=== PATIENT | female | born 1990 | race Caucasian/White ===

== ENCOUNTER 2016-07-12 17:00 | Inpatient (IN) | payer MEDICAID ==
[~2016-07-12] VITALS: Ht 154.9 cm; Wt 90.3 kg
[2016-07-12] MEDS ORDERED: Methylergonovine 0.2 mg/mL Inj IM PRN ×2 (17:25→18:25)
[2016-07-12] MEDS ORDERED: Hemorrhage Kit, Post Partum XX ONE ×2 (17:25→18:25)
[2016-07-12] MEDS ORDERED: Lactated Ringer's 1,000 ML IV PRN (17:25)
[2016-07-12] MEDS ORDERED: Oxytocin 30 Units/500 mL LR 30 UNITS in IV Premix 1 EACH IV PRN ×2 (17:25→18:25)
[2016-07-12] MEDS ORDERED: Oxytocin 10 Unit/mL Inj IM PRN ×2 (17:25→18:25)
[2016-07-12] MEDS ORDERED: Carboprost 250 mCg/mL Inj IM PRN ×2 (17:25→18:25)
[2016-07-12] MEDS ORDERED: Sodium Chloride LOK Flush 10 mL Syringe IVFLUSH PRN (17:25)
[2016-07-12] MEDS ORDERED: Oxytocin 30 Units/500 mL LR Premix IV ONE (17:32)
[2016-07-12 17:36] LABS: Mean Corpuscular Hemoglobin 30.8 pg (27.0-35.0); Mean Corpuscular Volume 90.7 fL (81-100)
[2016-07-12] MEDS ORDERED: fentaNYL 2 mCg/mL-Bupivicaine 0.125% 100 mL Premix EPIDURAL ONE (17:47)
[2016-07-12] MEDS ORDERED: Lactated Ringer's 1,000 ML IV SCH (18:23)
[2016-07-12] MEDS ORDERED: Witch Hazel-Glycerin Pads TOPICAL PRN (18:25)
[2016-07-12] MEDS ORDERED: Benzocaine (Dermoplast) 20% 60 Gm Spray TOPICAL PRN (18:25)
[2016-07-12] MEDS ORDERED: LANOlin HPA 7 Gm Ointment TOPICAL PRN (18:25)
[2016-07-12] MEDS ORDERED: Dextrose 5% Lactated Ringer's 1,000 ML IV SCH (18:35)
--- NOTE | 2016-07-12 23:31 | HP ---
[address] [address] HISTORY AND PHYSICAL PATIENT: JAYDEN CURTIS : 1990 MR#: [id number] ADMIT: 07/12/2016 JOB ID: [id number] DATE: 07/12/2016 ADMISSION DIAGNOSIS: Precipitous labor. HISTORY OF PRESENT ILLNESS: The patient is 25-year-old, 3, para 1-1-0-2 at 39 weeks 2 days gestational age who presented to triage in active labor, progressed to fully dilated, +3 station within less than 1 hour from presentation. *Current complicated with: 1- Late to care, 2-cigarette and marijuana abuse. 3- Desires permanent sterilization PAST OBSTETRICAL HISTORY: In 2006, 36 weeks ended with spontaneous vaginal delivery. In 2014, spontaneous vaginal delivery at term and the current . PAST GYNECOLOGIC HISTORY: No history of abnormal Pap smears. Prior history of Chlamydia. It was negative this . PAST SURGICAL HISTORY: None, per patient. PAST MEDICAL HISTORY: Asthma( no medications), anemia, IBS and gastroesophageal reflux disease. ALLERGIES: No known drug allergies. MEDICATIONS: vitamins, omeprazole. SOCIAL HISTORY: Smokes marijuana daily. Cigarette smoking half a pack per day for the last 11 years. Denied alcohol consumption. UDS was positive for cannabinoids. LABS: AB positive, antibody negative, rubella immune, serology nonreactive, hepatitis B surface antigen negative. HIV nonreactive. Varicella immune. GBS cultures negative. PRECIPITOUS LABOR REPORT: The patient progressed to fully dilated, +3 station. 's head delivered in left occiput anterior position. Tight nuchal cord was noted, was clamped and cut at the level of the baby's neck. This released anterior shoulder and posterior shoulder, the rest of the body followed. Baby was placed over mom's chest. Placenta followed spontaneously. Upon inspection, it was noted to be intact with three-vessel cord centrally inserted. Firm uterine fundus at the end of the delivery of the placenta. Estimated blood loss was 200 cc. Intact perineum upon inspection. FINDINGS: Single viable male with Apgars 8/9, weight is still pending. ASSESSMENT AND PLAN: The patient is a 25-year-old, 3, para 2-1-0-3, day zero status post precipitous labor and delivery. Desires tubal ligation. 1- keep patient n.p.o. and start IV hydration after midnight. 2- care. 3- Continue current medications. MTDD
--- NOTE | 2016-07-13 07:27 | PCM.PNOBPP ---
Subjective Date of Service Jul 13, 2016 Post : Spontaneous Vaginal Delivery Subjective 25-year-old, 3, para 2-1-0-3 with complicated by late to care , cigarette, and marijuana abuse post- day 1 who delivered via spontaneous vaginal delivery. Patient is having some crampy abdominal pain and moderate bleeding. She has not had any pain medications and has requested ibuprofen. She has been urinating without difficulty, no bowel movements but is passing flatus. She plans to breastfeed. Desires permanent sterilization and is scheduled for tubal ligation this afternoon. Patient to be NPO after breakfast. Lochia: Heavy Pain Management: PO pain meds Gastrointestinal: No N/V, Passing Flatus Postop Activity: Ambulating Independently Labs Varicella immune Group B Strep Results: Negative Rubella: Immune Blood Type: AB Labs Laboratory Tests 07/12/16 17:28: White Blood Count 16.0, Red Blood Count 3.99, Hemoglobin 12.3, Hematocrit 36.2, Mean Corpuscular Volume 90.7, Mean Corpuscular Hemoglobin 30.8, Mean Corpuscular Hemoglobin Concent 34.0, Red Cell Distribution Width 13.7, Platelet Count 151 Exam Vital Signs Vital Signs: VS reviewed, stable Exam Abdomen: Uterus is, Fundus firm, Abdomen soft, Abdomen appropriately tender : UOP has been, Voiding without difficulty Extremities: No tenderness/swelling Lungs: Clear to Auscultation, Normal Air Movement Heart: Regular Rate/Rhythm, Normal S1, Normal S2, No Murmurs/Rubs/Gallops General: Alert, Oriented X3, Cooperative, No Acute Distress OB Post Assessment/Plan Assessment The patient is a 25-year-old, 3, para 2-1-0-3, day 1 status post spontaneous vaginal delivery. Pain Evaluation: Adequate Pain Control Post plan: Continue routine post care, Other (Tubal ligation scheduled for today. Discharge pending procedure.) Plan: 1. Doing well and meeting all goals. Will continue routine care. 2. Tubal ligation planned for this afternoon patient NPO after breakfast. 3. Plan to discharge 07/14 pending tubal ligation. DUNCAN ANNA DO Jul 13, 2016 06:37
[2016-07-13] MEDS: Ascorbic Acid 500 mg Tablet PO SCH ×2 (07:46→18:47)
[2016-07-13 08:47] LABS: Mean Corpuscular Hemoglobin 30.6 pg (27.0-35.0); Mean Corpuscular Volume 91.8 fL (81-100)
[2016-07-13] MEDS: oxyCODONE-Acetamin 5-325 mg Tablet PO PRN ×2 (13:16→18:48)
--- NOTE | 2016-07-13 14:33 | NUR ---
Social work: Family center assessment 07/13/16 MOB and MOB names: Tran Alex and Viktoriya Rocko Baby's name: Bridger Marquez Reason for SPOT MACHINE OPERATOR consult: THC use during Current living situation: GM lives with her parents and her 5 children. GM's partner lives with them as well. Previous children/in who's care/CPS involvement: GM reports that between her and her partner they have 5 children. Leanna Crowell, Emmanuel Charles, Elyssa Marquez, Karin Jean-Baptiste, Bridger Alma. GM reports two previous CPS investigations which have been closed. GM reports full custody of her children. Substance use history: GM reports THC use during but no other drug or alcohol use. GM denies previous treatment and was expecting SPOT MACHINE OPERATOR involvement due to previous experience. Mental health history: GM denies any history of depression or anxiety, without any previous inpatient or outpatient treatment. No history of Suicidal ideations. Source of income/state assistance: GM denies her or her partner are employeed. GM is enrolled with [employer] and [employer]. Family support assists with finances. DV/abuse history: GM denies current abuse and feels safe at home. Supports: GM has ample family support who have been with her since delivery and are present at time of evaluation. Assessment/disposition: SPOT MACHINE OPERATOR referral received for GM who reported THC use during and had a subsequent positive UDS for Marijuana. Cord stat is pending however baby's UDS was negative. GM expected contact and has had CPS involvement in the past therefore she is aware of procedure for CPS call. GM has no concerns nor have RN during care. CPS referral made to Shayy Jung through CPS intake, however no case open as of yet. Otherwise GM has no additional SPOT MACHINE OPERATOR needs. ROSETTE Upton Addendum: 07/13/16 at 1433 by TOM FARIA Amended: Links added.
--- NOTE | 2016-07-13 18:14 | PCM.DIMED ---
Discharge Instructions Date of Service Jul 13, 2016 Dates of Hospitalization Jul 12, 2016 at 17:21 Diet No restrictions Activity No restrictions Call your provider Fever or Chills, Shortness of breath, Bleeding, Chest pain, Vomitting, Excessive diarrhea, Weakness (unilateral) Patient Instructions Follow-up with PCP in: 3 weeks Roe Santana MD Jul 13, 2016 18:14
[2016-07-13] MEDS ORDERED: DOCU-41 PO (18:16)
[2016-07-13] MEDS ORDERED: IBUP-1827 PO (18:16)
[2016-07-13] MEDS ORDERED: OXYC1TAB24 PO (18:16)
[2016-07-13] MEDS ORDERED: Sodium Citrate-Citric Acid 30 mL Solution PO SCH (18:30)
[2016-07-13 18:56] VITALS: BP 121/77; PULSE 63; RESP 20
--- NOTE | 2016-07-14 00:34 | DIS ---
[address] [address] DISCHARGE SUMMARY PATIENT: JAYDEN CURTIS : 1990 MR#: [id number] ADMIT: 07/12/2016 JOB ID: [id number] DIS: 07/13/2016 ADMITTING DIAGNOSIS: A 25-year-old, 3 para 2, in active labor at 39 weeks. DISCHARGE DIAGNOSIS: A 25-year-old, 3 para 3, status post spontaneous vaginal delivery at term. HOSPITAL COURSE: The patient is a 25-year-old, 3 para 3 now, who had spontaneous vaginal delivery on July 12, 2016. She presented to triage in active labor and progressed to full dilation and station +3 within less than 1 hour out from presentation. Subsequently, the patient underwent spontaneous vaginal delivery that was uncomplicated. There were no lacerations. Delivered male infant with Apgars 8 at one minute and 9 at five minutes. On day one, she was doing well, she was initially placed n.p.o. because she desired tubal ligation, but subsequently she changed her mind. She was ambulating well, breast-feeding. She is feeling slight blues apparently. There was no vaginal bleeding. No abnormal vaginal discharge. The fundus was firm. Vitals were stable. Upon further discussion with the patient, we decided to give her extra time to think about possible was tubal ligation and do as an interval procedure in six weeks, so the patient was discharged on day one, with all discharge criteria met. DISCHARGE MEDICATIONS: Includin. Percocet 5/325 mg p.o. t.i.d. p.r.n. 2. Motrin 600 mg p.o. t.i.d. p.r.n. 3. Colace 100 mg p.o. b.i.d. p.r.n. A follow up visit in the clinic is scheduled in three weeks.
[2016-10-07] MEDS ORDERED: PREN-12 PO (17:23)
[2016-10-07] MEDS ORDERED: OMEP40CA36 PO (17:23)
== END 2016-07-13 19:05 | disposition home or self-care (01) | DRG 775 ==
LOC: FBCO 17:00 → FBC 17:21
PROVIDERS: ADMIT Obstetrics & Gynecology; ATTEND Obstetrics & Gynecology
PROC: 10E0XZZ Delivery of Products of Conception, External Approach (ICD-10-PCS; principal; 2016-07-12)
DX: O69.2XX0 Labor and delivery complicated by other cord entanglement, with compression, not applicable or unspecified (principal); O99.323 Drug use complicating pregnancy, third trimester; Z3A.39 39 weeks gestation of pregnancy; O99.333 Smoking (tobacco) complicating pregnancy, third trimester; F17.210 Nicotine dependence, cigarettes, uncomplicated; F12.10 Cannabis abuse, uncomplicated; Z37.0 Single live birth; O09.33 Supervision of pregnancy with insufficient antenatal care, third trimester